=== PATIENT | female | born 1990 | race Caucasian/White ===

== ENCOUNTER 2018-10-10 13:10 | Outpatient (CLI) | payer OTHER ==
--- NOTE | 2018-10-10 15:03 | Ultrasound Report ---
Reason: LUMP IN THROAT Procedure Date: 10/10/2018 Accession Number: [id number] / [id number] Procedure: US - Head or Neck Soft Tissue CPT Code: FULL RESULT: EXAM: THYROID ULTRASOUND EXAM DATE: 10/10/2018 02:07 PM. CLINICAL HISTORY: Lump in throat. COMPARISON: None. TECHNIQUE: Real time sonographic imaging of the thyroid was performed by the belt maker. Multiple insurance verification representative static images were saved for review. FINDINGS: THYROID GLAND: Right Lobe: 4.8 x 1.4 x 1.6 cm, volume 5.6 cc. Normal background echotexture. Right Lobe Nodules: None. Left Lobe: 4.2 x 1.2 x 1.5 cm, volume 4.0 cc. Normal background echotexture. Left Lobe Nodules: None. Isthmus: 0.18 cm AP. Isthmic Nodules: None. LYMPH NODES: No adenopathy demonstrated in the central or lateral compartment. OTHER: None. IMPRESSION: Normal thyroid ultrasound. Note: Patient had been scheduled for possible fine-needle aspiration of any thyroid findings, which was not performed given normal exam findings today. Patient was encouraged to follow-up clinically with her PCP for symptoms. Management recommendations are based on 2015 [place] [employer] Management Guidelines for Adult Patients with Thyroid Nodules and Differentiated Thyroid Cancer. RADIA
== END 2018-10-10 13:11 | disposition home or self-care (01) ==
LOC: DI 13:10
PROVIDERS: ATTEND Internal Medicine
DX: R22.1 Localized swelling, mass and lump, neck (principal)
CPT/HCPCS: 76536